=== PATIENT | male | born 1960 | race American Indian/Alaskan Native ===

== ENCOUNTER 2016-11-15 22:11 | Emergency (ER) | payer OTHER ==
[2016-11-15 22:32] VITALS: BP 138/84; PULSE 98; RESP 20; TEMP 98; O2SAT 98
[2016-11-15] MEDS ORDERED: Bacitracin 500 Units/gm Oint Foilpak UD ONE (23:15)
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
== END 2016-11-15 23:49 | disposition home or self-care (01) ==
LOC: C.ER 22:11
DX: S80.811A Abrasion, right lower leg, initial encounter (principal); S80.11XA Contusion of right lower leg, initial encounter; V19.88XA Pedal cyclist (driver) (passenger) injured in other specified transport accidents, initial encounter; Y93.55 Activity, bike riding; Y92.410 Unspecified street and highway as the place of occurrence of the external cause